=== PATIENT | male | born 1950 | race Caucasian/White ===

== ENCOUNTER 2016-05-23 20:00 | Emergency (ER) | payer OTHER ==
[~2016-05-23] VITALS: Ht 157.5 cm; Wt 97.7 kg
[~2016-05-23 20:00] MED LIST: APIDRA100 UNIT/1 SC; ASPIR 8181 M1 PO; BUPROPION HCL100 MG PO; CILOSTAZOL50 MG PO; CLONAZEPAM1 MG PO; CRESTOR20 MG PO; CYCLOBENZAPRINE10 MG PO; DILAUDID2 MG PO; FARXIGA5 MG PO; GABAPENTIN600 MG PO; GLIMEPIRIDE4 MG PO; HYDROCHLOROTH12.5 M3 PO; HYDROCODON-ACE1 EAC9 PO; INDOCIN50 MG PO; KEFLEX500 MG PO; LEVEMIR FL100 UNIT/1 SC; LISINOPRIL10 MG PO; LOPRESSOR50 MG PO; METFORMIN HCL1000 MG PO; METOPROLOL SUCC50 MG PO; PERCOCET 5/31 TABLET PO; RANITIDINE HCL150 MG PO; SERTRALINE HCL100 MG PO; TYLENOL WITH C1 EACH PO; VALIUM5 MG PO; VITAMIN C + RO500 MG PO; VITAMIN E400 UNIT PO
[2016-05-23 20:37] LABS: HEMATOCRIT 47.6 % (38.0-50.0); MCH 28.1 PG (29.0-34.0); MCHC 32.6 G/DL (30.0-36.0); MCV 86.2 FL (86-99); MEAN PLAT.VOLUME 9.9 uM^3 (9.0-12.4); PLATELET COUNT 273 K/uL (156-360); RBC DIS.WIDTH-CV 15.6 % (11.8-14.6); RED BLOOD COUNT 5.52 M/uL (4.00-5.50); WHITE BLOOD COUNT 8.7 K/uL (4.1-10.2)
[2016-05-23 20:50] LABS: CHLORIDE 104 mEq/L (99-109); POTASSIUM 4.2 mEq/L (3.7-5.4); SODIUM 143 mEq/L (136-147)
[2016-05-23 20:52] LABS: GLUCOSE 116 mg/dL (70-99)
[2016-05-23 20:53] LABS: ANION GAP 12 MEQ/L (2-14)
[2016-05-23 20:54] LABS: TOTAL BILIRUBIN 0.4 mg/dL (0.0-1.0)
[2016-05-23 20:56] LABS: ALKALINE PHOSPHATASE 102 IU/L (3-129); GFR ESTIMATE (CALCULATED) > 59 mL/min/
[2016-05-23 20:57] LABS: UREA NITROGEN (BUN) 13 mg/dL (9-23)
[2016-05-23 22:04] LABS: ADD MIUA? NO; BILIRUBIN NEGATIVE; BLOOD NEGATIVE; COLOR YELLOW ((YELLOW)); GLUCOSE (STRIP) >=500; KETONES NEGATIVE; LEUKOCYTES NEGATIVE; NITRITE NEGATIVE; PROTEIN (STRIP) NEGATIVE; SPECIFIC GRAVITY 1.025 (1.000-1.030); UCUL ADDED? NO; UROBILINOGEN 0.2 MG/DL (0.2-1.0)
[2016-05-24] MEDS ORDERED: PERCOCET 5/31 TABLET PO (01:00)
[2016-05-24 01:11] VITALS: BP 136/84
== END 2016-05-24 01:15 | disposition home or self-care (01) ==
LOC: EME 20:00
DX: R10.9 Unspecified abdominal pain (principal); E11.9 Type 2 diabetes mellitus without complications; E78.5 Hyperlipidemia, unspecified; I10 Essential (primary) hypertension; Z95.5 Presence of coronary angioplasty implant and graft; Z91.041 Radiographic dye allergy status
CPT/HCPCS: 74176; 80053; 81003; 85027; 99281; 99284; J1885

== ENCOUNTER 2016-07-10 05:19 | Day surgery (SDC) | payer OTHER ==
[~2016-07-10] VITALS: Ht 157.5 cm; Wt 97.9 kg
[2016-07-10 06:16] VITALS: BP 138/70
[2016-07-10 06:37] LABS: POINT-OF-CARE METER ID UU14174212
[2016-07-10 10:29] LABS: POINT-OF-CARE METER ID UU13113675; POINT-OF-CARE USER ID 515036437
[2016-07-10 11:00] VITALS: BP 130/69
== END 2016-07-10 12:06 | disposition home or self-care (01) ==
LOC: SDC 05:19
PROVIDERS: Otolaryngology
DX: J32.2 Chronic ethmoidal sinusitis (principal); J32.0 Chronic maxillary sinusitis; J34.2 Deviated nasal septum; J33.9 Nasal polyp, unspecified; I10 Essential (primary) hypertension; I25.10 Atherosclerotic heart disease of native coronary artery without angina pectoris; Z79.84 Long term (current) use of oral hypoglycemic drugs; Z79.4 Long term (current) use of insulin; Z79.899 Other long term (current) drug therapy; Z87.891 Personal history of nicotine dependence
CPT/HCPCS: 82948; 88305; J0690; J1100; J2250; J2405; J3010; J3301

== ENCOUNTER 2016-08-13 14:42 | Emergency (ER) | payer OTHER ==
[~2016-08-13] VITALS: Ht 157.5 cm; Wt 98.8 kg
[2016-08-13] MEDS ORDERED: PERCOCET 5/31 TABLET PO (16:53)
[2016-08-13 17:01] VITALS: BP 119/73
== END 2016-08-13 17:09 | disposition home or self-care (01) ==
LOC: EME 14:42
DX: M54.5 Low back pain (principal); G89.29 Other chronic pain; Z79.4 Long term (current) use of insulin; Z79.82 Long term (current) use of aspirin; Z87.891 Personal history of nicotine dependence
CPT/HCPCS: 99281; 99284; J2270

== ENCOUNTER 2016-09-26 12:17 | Emergency (ER) | payer OTHER ==
[~2016-09-26] VITALS: Ht 157.5 cm; Wt 99.0 kg
[2016-09-26 14:11] LABS: BASOPHIL COUNT 0.1 K/uL (0-0.1); EOSINOPHIL (%) 3.4 % (0-5); EOSINOPHIL COUNT 0.3 K/uL (0-0.3); HEMATOCRIT 42.2 % (38.0-50.0); IMMATURE GRANULOCYTE (%) 0.7 % (0.0-0.7); IMMATURE GRANULOCYTE COUNT 0.1 K/uL; INSTRUMENT ABS NEUTROPHIL CT 4.6 K/uL; LYMPHOCYTE COUNT 1.9 K/uL (1.0-2.8); MCH 29.8 PG (29.0-34.0); MCHC 33.2 G/DL (30.0-36.0); MCV 89.8 FL (86-99); MEAN PLAT.VOLUME 10.7 uM^3 (9.0-12.4); MONOCYTE (%) 8.6 % (3-12); MONOCYTE COUNT 0.6 K/uL (0-0.8); NEUTROPHIL (%) 61.5 % (45-76); NEUTROPHIL COUNT 4.6 K/uL (1.8-6.4); NRBC (%) 0.3 /100 WBC (0-0); PLATELET COUNT 189 K/uL (156-360); RBC DIS.WIDTH-CV 13.4 % (11.8-14.6); RBC DIS.WIDTH-SD 43.8 % (39-53); WHITE BLOOD COUNT 7.4 K/uL (4.1-10.2)
[2016-09-26 14:21] LABS: CHLORIDE 103 mEq/L (99-109); SODIUM 139 mEq/L (136-147)
[2016-09-26 14:22] LABS: GLUCOSE 301 mg/dL (70-99)
[2016-09-26 14:24] LABS: ANION GAP 10 MEQ/L (2-14)
[2016-09-26 14:26] LABS: GFR ESTIMATE (CALCULATED) > 59 mL/min/
[2016-09-26 14:27] LABS: UREA NITROGEN (BUN) 16 mg/dL (9-23)
[2016-09-26 14:29] LABS: ADD MIUA? NO; BILIRUBIN NEGATIVE; BLOOD NEGATIVE; COLOR YELLOW ((YELLOW)); GLUCOSE (STRIP) >=500; KETONES NEGATIVE; LEUKOCYTES NEGATIVE; NITRITE NEGATIVE; PROTEIN (STRIP) NEGATIVE; SPECIFIC GRAVITY 1.015 (1.000-1.030); UROBILINOGEN 0.2 MG/DL (0.2-1.0)
[2016-09-26] MEDS ORDERED: MECLIZINE HCL25 MG PO (14:48)
[2016-09-26 14:55] VITALS: BP 146/71
== END 2016-09-26 14:57 | disposition home or self-care (01) ==
LOC: RME 12:17 → EME 12:17 → RME 14:57
PROVIDERS: Physician Assistant
DX: R42 Dizziness and giddiness (principal); R29.6 Repeated falls; E11.9 Type 2 diabetes mellitus without complications; E78.5 Hyperlipidemia, unspecified; K21.9 Gastro-esophageal reflux disease without esophagitis; Z79.84 Long term (current) use of oral hypoglycemic drugs; Z95.1 Presence of aortocoronary bypass graft; Z96.652 Presence of left artificial knee joint; Z91.041 Radiographic dye allergy status; Z87.891 Personal history of nicotine dependence; Z79.899 Other long term (current) drug therapy
CPT/HCPCS: 70450; 80048; 81003; 85025; 93005; 99281; 99284

== ENCOUNTER 2016-11-10 11:27 | Observation (INO) | payer OTHER ==
[~2016-11-10] VITALS: Ht 157.5 cm; Wt 100.0 kg
[~2016-11-10 11:27] MED LIST changes: +MECLIZINE HCL25 MG PO
[2016-11-10 12:09] LABS: HEMATOCRIT 45.6 % (38.0-50.0); MCH 30.5 PG (29.0-34.0); MCHC 34.2 G/DL (30.0-36.0); MCV 89.2 FL (86-99); MEAN PLAT.VOLUME 10.7 uM^3 (9.0-12.4); PLATELET COUNT 238 K/uL (156-360); RBC DIS.WIDTH-CV 13.4 % (11.8-14.6); RBC DIS.WIDTH-SD 43.7 % (39-53); RED BLOOD COUNT 5.11 M/uL (4.00-5.50); WHITE BLOOD COUNT 9.4 K/uL (4.1-10.2)
[2016-11-10 12:21] LABS: CHLORIDE 102 mEq/L (99-109); POTASSIUM 3.9 mEq/L (3.7-5.4); SODIUM 140 mEq/L (136-147)
[2016-11-10 12:22] LABS: GLUCOSE 180 mg/dL (70-99)
[2016-11-10 12:24] LABS: ANION GAP 14 MEQ/L (2-14)
[2016-11-10 12:26] LABS: GFR ESTIMATE (CALCULATED) > 59 mL/min/
[2016-11-10 12:27] LABS: UREA NITROGEN (BUN) 20 mg/dL (9-23)
[2016-11-10 13:18] LABS: CREATINE KINASE 1496 IU/L (1-294)
[2016-11-10] MEDS ORDERED: ZOLOFT100 MG PO (14:51)
[2016-11-10] MEDS ORDERED: CRESTOR20 MG PO ×2 (14:53)
[2016-11-10] MEDS ORDERED: PRINIVIL10 MG PO (14:54)
[2016-11-10] MEDS ORDERED: ZANTAC150 MG PO (14:55)
[2016-11-10] MEDS ORDERED: APIDRA SOL100 UNIT/1 SC (14:57)
[2016-11-10 20:03] VITALS: BP 138/63
[2016-11-11 00:55] VITALS: BP 113/55
[2016-11-11 05:06] VITALS: BP 104/54
[2016-11-11 06:27] LABS: ANION GAP 8 MEQ/L (2-14); CHLORIDE 104 MEQ/L (99-109); CREATINE KINASE 693 IU/L (1-294); GFR ESTIMATE (CALCULATED) > 59 mL/min/; POTASSIUM 3.2 MEQ/L (3.7-5.4); SAMPLE HEMOLYSIS CHECK 0; SAMPLE ICTERIC CHECK 0; SAMPLE LIPEMIA CHECK 0; SODIUM 141 MEQ/L (136-147); TOTAL CK 693 IU/L (1-294); UREA NITROGEN (BUN) 15 mg/dL (9-23)
[2016-11-11 06:43] LABS: GLUCOSE 116 mg/dL (70-99)
[2016-11-11 07:14] LABS: CK-MB 8.6 ng/mL (0.0-4.9)
[2016-11-11 07:28] VITALS: BP 87/51
[2016-11-11 07:30] VITALS: BP 88/58
[2016-11-11 07:32] VITALS: BP 129/72
[2016-11-11 12:44] VITALS: BP 124/59
[2016-11-11] MEDS ORDERED: ANTIVERT25 MG PO (15:16)
== END 2016-11-11 16:00 | disposition home or self-care (01) ==
LOC: EME 11:27 → EDOF 15:10 → ENRESERV 15:13 → 5WEST 17:47
PROVIDERS: Internal Medicine
DX: M62.82 Rhabdomyolysis (principal); R29.6 Repeated falls; H81.10 Benign paroxysmal vertigo, unspecified ear; E11.40 Type 2 diabetes mellitus with diabetic neuropathy, unspecified; I10 Essential (primary) hypertension; I25.10 Atherosclerotic heart disease of native coronary artery without angina pectoris; Z95.1 Presence of aortocoronary bypass graft; Z95.5 Presence of coronary angioplasty implant and graft; I25.2 Old myocardial infarction; I95.1 Orthostatic hypotension; E78.5 Hyperlipidemia, unspecified; K21.9 Gastro-esophageal reflux disease without esophagitis; Z87.891 Personal history of nicotine dependence; Z82.49 Family history of ischemic heart disease and other diseases of the circulatory system; Z96.652 Presence of left artificial knee joint; Z79.4 Long term (current) use of insulin; Z79.82 Long term (current) use of aspirin; Z79.84 Long term (current) use of oral hypoglycemic drugs
CPT/HCPCS: 71020; 72100; 73502; 80048; 82550; 82553; 82948; 85027; 93005; 93880; 99281; 99285; G0378; G8978 GP CH; G8979 GP CH; G8980 GP CH; J1650; J1815; J7030

== ENCOUNTER 2017-01-21 13:33 | Emergency (ER) | payer OTHER ==
[~2017-01-21] VITALS: Ht 157.5 cm; Wt 102.6 kg
[~2017-01-21 13:33] MED LIST changes: +ANTIVERT25 MG PO; +APIDRA SOL100 UNIT/1 SC; +PRINIVIL10 MG PO; +ZANTAC150 MG PO; +ZOLOFT100 MG PO
[2017-01-21] MEDS ORDERED: PERCOCET 5/31 TABLET PO (17:34)
[2017-01-21] MEDS ORDERED: MOTRIN600 MG PO (17:34)
[2017-01-21 18:19] VITALS: BP 154/89
== END 2017-01-21 18:22 | disposition home or self-care (01) ==
LOC: EME 13:33
PROC: 0RSXXZZ Reposition Left Finger Phalangeal Joint, External Approach (ICD-10-PCS; principal; 2017-01-21)
DX: S63.283A Dislocation of proximal interphalangeal joint of left middle finger, initial encounter (principal); S20.212A Contusion of left front wall of thorax, initial encounter; S00.83XA Contusion of other part of head, initial encounter; S00.81XA Abrasion of other part of head, initial encounter; S60.512A Abrasion of left hand, initial encounter; W01.0XXA Fall on same level from slipping, tripping and stumbling without subsequent striking against object, initial encounter; E78.5 Hyperlipidemia, unspecified; E11.9 Type 2 diabetes mellitus without complications; Z79.4 Long term (current) use of insulin; Z95.1 Presence of aortocoronary bypass graft; Z95.5 Presence of coronary angioplasty implant and graft; Z79.82 Long term (current) use of aspirin; Z87.891 Personal history of nicotine dependence
CPT/HCPCS: 71101; 73030; 73130; 73140; 99281; 99285

== ENCOUNTER → 2017-09-24 | Outpatient (CLI) | payer OTHER, BC ==
[~2017-09-24] MED LIST changes: +MOTRIN600 MG PO
== END | disposition home or self-care (01) ==
LOC: RAD 14:00
PROC: 3E0R3KZ Introduction of Other Diagnostic Substance into Spinal Canal, Percutaneous Approach (ICD-10-PCS; principal; 2017-09-24)
DX: M48.061 Spinal stenosis, lumbar region without neurogenic claudication (principal); M25.78 Osteophyte, vertebrae; M85.88 Other specified disorders of bone density and structure, other site; I70.0 Atherosclerosis of aorta; Z96.89 Presence of other specified functional implants; M96.0 Pseudarthrosis after fusion or arthrodesis; R20.2 Paresthesia of skin
CPT/HCPCS: 62304; 72132